=== PATIENT | male | born 1975 | race African-American/Black ===

== ENCOUNTER 2021-02-20 12:38 | Emergency (ER) | payer OTHER, SELFPAY ==
--- NOTE | ~2021-02-20 | XR_ITS ---
EXAMINATION: XR KNEE, RIGHT CLINICAL INFORMATION: Right knee pain and swelling COMPARISON: None TECHNIQUE: Four views of the right knee. FINDINGS: No significant joint space narrowing. Small marginal osteophytes of all 3 compartments. There is a moderately sized joint effusion. No fracture. XR/XR knee RT 4V IMPRESSION: Mild tricompartmental osteoarthritis with a joint effusion. No acute osseous abnormality.
[2021-02-20 12:49] VITALS: BP 111/66; PULSE 90; RESP 16; TEMP 35.9; O2SAT 96; BMI 34.6
[2021-02-20] MEDS: Lidocaine HCl 2 % MPF 5 ML VIAL INFILTRATI (14:26)
--- NOTE | 2021-02-20 14:26 | PC.NURSE ---
preperation to drain knee.
--- NOTE | 2021-02-20 14:51 | ED.EXTPRO ---
HPI - Extremity Problem General Chief complaint: Extremity Problem Stated complaint: R KNEE PAIN Time Seen by Provider: 02/20/21 12:59 Source: patient Mode of arrival: ambulatory Limitations: no limitations History of Present Illness HPI Narrative: Right knee pain and swollen since Tuesday. Patient denies any trauma to the knee. Patient states no fever chills. Patient states knee feels warm. Related Data Previous Rx's Medication Instructions Recorded naproxen 500 mg PO BID PRN #20 tab 02/20/21 prednisone 40 mg PO DAILY #10 tab 02/20/21 Allergies Allergy/AdvReac Type Severity Reaction Status Date / Time Unable to Assess Allergy Verified 02/20/21 14:14 Review of Systems Review of Systems: Yes all other systems are reviewed and are negative Constitutional: Constitutional: Reports as per HPI and Reports no additional constitutional complaints Eyes: Eyes: Reports as per HPI and Reports no additional eye complaints ENT: Reports system reviewed and no additional complaints, except as documented and Reports as per HPI Cardiovascular: Cardiovascular: Reports as per HPI and Reports no additional cardiovascular complaints Respiratory: Respiratory: Reports as per HPI and Reports no additional respiratory complaints Gastrointestinal: Gastrointestinal: Reports as per HPI and Reports no additional gastrointestinal complaints Genitourinary: Genitourinary: Reports no additional male genitourinary complaints and Reports as per HPI Musculoskeletal: Musculoskeletal: Reports no additional musculoskeletal complaints, Reports as per HPI, Reports arthralgias and Reports joint swelling (Right knee) Neurologic: Reports system reviewed and no additional complaints, except as documented and Reports as per HPI Psychiatric: Psychiatric: Reports no additional psychiatric complaints and Reports as per HPI [facility] Past Medical History Medical History (Updated 02/20/21 @ 14:53 by PEDRO Loyola) Anxiety Depression Social History Social History Advance Directives: No Advance Directives Information Provided: Yes Physical Exam Vital Signs: Vital Signs: Last Vital Signs Temp 96.6 F L 02/20/21 12:49 Pulse 90 02/20/21 12:49 Resp 16 02/20/21 12:49 BP 111/66 02/20/21 12:49 Pulse Ox 96 02/20/21 12:49 Body Mass Index 34.6 Const: General: cooperative, healthy appearing, comfortable, no acute distress, well developed, alert, awake and Physically active Orientation/consciousness: patient oriented x3 HENMT: Head: Yes normal to inspection, Yes No palpable skull fracture present, Yes normocephalic and Yes atraumatic Eyes: General: appearance normal, both eyes and all related structures Neck: Neck: Yes normal visual inspection, Yes full ROM, Yes no lymphadenopathy, Yes no meningeal signs, Yes trachea midline, Yes supple and No tender Chest: Chest palpation & inspection: normal inspection of the chest and normal palpation of entire chest wall Resp: Effort & Inspection: normal respiratory effort and able to speak in complete sentences Auscultation: clear to auscultation bilaterally Cardio: Jugular venous distension: no JVD Heart sounds: S1 normal heart sound present and S2 normal heart sound present GI: Inspection: Yes normal to inspection and No abdominal wall ecchymosis Palpation (GI): Soft to palpation, not firm, nontender, no guarding and not rigid : General: No CVA tenderness and Yes no CVA tenderness Back/Spine/Pelvis: Back: no CVA tenderness, No CVA tenderness and No back tenderness Skin: General skin exam: no rashes or lesions noted and elasticity normal Neuro: General: patient oriented x3, gait normal, no meningeal signs and CN's II-XI intact bilaterally Cranial nerves: Yes CN's II-XII intact bilaterally Extrem: Other: Right knee: Positive for knee swelling and warmth. Lower extremity negative for calf swelling/pain/redness. Psych: Appearance: grossly normal, well kempt and not disheveled Course Course Course Narrative: Patient was sent for right knee x-ray. Reevaluation(s) Reevaluation #1: Right knee x-ray shows arthritis and joint effusion. Due to knee being warmth and discussed with patient necessity for arthrocentesis. And patient agree with the plan. Patient signed consent for or throw centesis of right knee. Reevaluation #2: Knee was clean with Betadine iodine. 4 mL of 2% lidocaine was given for anesthesia. 18 gauge needle was then introduced to collect synovial fluid abd upon entry patient smacked my hand away and I had to remove the needle. Patient refused procedure. Patient was informed necessisity of the arthrocentesis to rule out septic knee or gout. Patient informed sepsis knee joint can be fatal, but patient still refused. Patient preferred to follow-up with orthopedic. Patient agreed with the sign out against medical advice even knowing possibility of , sepsis, decreased quality of life, and disability. MDM - Extremity (Nontraumatic) MDM Narrative Medical decision making narrative: Right knee pain swollen. AMA Discharge Plan Discharge Clinical Impression: Acute knee pain, Acute joint effusion Patient Disposition: Left Against Medical Advice Instructions: Swollen Knee Joint (ED) Additional Instructions: Stephens cierre de sesi?n contra el consejo m?dico. Regrese al servicio de urgencias de inmediato si tiene fiebre, escalofr?os, aumento de la hinchaz?n, calor, enrojecimiento, incapacidad para doblar la rodilla o cualquier otro s?ntoma preocupante. Prescriptions: New prednisone 20 mg tablet 40 mg PO DAILY Qty: 10 RF: 0 naproxen 500 mg tablet 500 mg PO BID PRN (Reason: pain) Qty: 20 RF: 0 Referrals: Rangel Quigley MD [Physician] - 2 days (Right knee swollen. Refused arthrocentesis) Stand Alone Forms: Against Medical Advice Print Language: Sudanese
--- NOTE | 2021-02-20 14:53 | PC.NURSE ---
PATIENT SCREAMING AT THE BEDSIDE HE SAYS HE IS IN PAIN BUT IS REFUSING FOR PA TO PERFORM KNEE ASPIRATION. HE IS REFUSING BLOOD WORK AT THIS TIME WELL. RN AND PA AWARE. PATIENT STATES HE WANTS TO LEAVE AMA BECAUSE IT HURTS TO MUCH
== END 2021-02-20 15:56 | disposition left against medical advice (07) ==
PROVIDERS: Emergency Provider Emergency Medicine Emergency Medical Services
DX: M25.561 Pain in right knee (principal); M25.461 Effusion, right knee; M17.11 Unilateral primary osteoarthritis, right knee
CPT/HCPCS: 73564; 96374; 99283; 99284; 99285

== ENCOUNTER 2021-02-25 07:46 | Outpatient (REF) | payer OTHER, SELFPAY ==
--- NOTE | ~2021-02-25 | XR_ITS ---
EXAMINATION: XR KNEE, BILATERAL STANDING XR KNEE, RIGHT CLINICAL INFORMATION: Knee pain. COMPARISON: Right knee radiographs 02/20/2021 TECHNIQUE: Single standing view both knees with 2 additional views right knee . FINDINGS: The standing radiograph of the knees definitely accentuates the joint space narrowing that is present compared with the presumed supine radiographs from 09/22/2020. In both knees, there is narrowing of both the medial and lateral compartments, medially greater than laterally. Some mild osteophytes are present bilaterally. The lateral radiograph of the right knee demonstrates some mild degenerative changes at the patellofemoral joint along with a small right knee joint effusion. XR/XR knee RT 2V IMPRESSION: Tricompartmental degenerative changes with [id number] loss of joint space as evident on the standing radiograph as opposed to the supine radiograph performed 5 days ago.
--- NOTE | ~2021-02-25 | XR_ITS ---
EXAMINATION: XR KNEE, BILATERAL STANDING XR KNEE, RIGHT CLINICAL INFORMATION: Knee pain. COMPARISON: Right knee radiographs 02/20/2021 TECHNIQUE: Single standing view both knees with 2 additional views right knee . FINDINGS: The standing radiograph of the knees definitely accentuates the joint space narrowing that is present compared with the presumed supine radiographs from 09/22/2020. In both knees, there is narrowing of both the medial and lateral compartments, medially greater than laterally. Some mild osteophytes are present bilaterally. The lateral radiograph of the right knee demonstrates some mild degenerative changes at the patellofemoral joint along with a small right knee joint effusion. XR/XR knee standing BI IMPRESSION: Tricompartmental degenerative changes with [id number] loss of joint space as evident on the standing radiograph as opposed to the supine radiograph performed 5 days ago.
== END 2021-02-25 07:47 | disposition home or self-care (01) ==
LOC: HO.HOSX 07:46
PROVIDERS: Visit Provider Physician Assistant
DX: M17.11 Unilateral primary osteoarthritis, right knee (principal); M25.461 Effusion, right knee
CPT/HCPCS: 73560; 73565; 99202

== ENCOUNTER → 2021-04-24 10:25 | Outpatient (BNVA) | payer OTHER, SELFPAY | PROVIDERS: Visit Provider Physician Assistant | DX: M17.11 Unilateral primary osteoarthritis, right knee (principal) | CPT/HCPCS: 99212 ==

== ENCOUNTER 2021-05-07 11:00 | Outpatient (RCR) | payer OTHER, SELFPAY ==
--- NOTE | 2021-04-01 11:43 | MHC.PT.EP ---
[facility] [place] Office [place] Office [place] Office [address] [phone] F: [phone] F: [phone] F: [phone] F: [phone] Physical Therapy Plan of Care Date of Evaluation: Date of Surgery: N/A Diagnosis: unilateral primary OA right knee Assessment: 46 y/o M referred for primary OA R knee with s/sx consistent with R HS strain and ?lateral meniscal involvement. Pt complains of pain and difficulty with walking, prolonged standing, navigating stairs, squatting and bending down, preparing meals, getting into/out of shower, and sleeping. Examination shows increased R knee joint effusion, TTP R knee lateral joint line and popliteal fossa ?allodynia, limited R knee ROM, limited R hip/knee strength, poor transitional mobility, and impaired gait mechanics with increased forward trunk flexion, decreased R stance time, and lack of R knee terminal extension. Pt presents guarded and is unable to tolerate palpation or exercises. Assess HS length and special tests for R knee meniscal involvement when pt tolerance increases. Recommend PT 2/week for 5 weeks to address impairments, implement HEP, and optimize functional mobility. Frequency and Duration: The patient will be seen 2x/week for 5 weeks Short Term Goals: 2 weeks: 1. I with HEP 2. Pt will increase R knee AROM by >10 degrees to promote functional mobility 2. Pt will demonstrate proper squat form with <3/10 pain Custodial Goals: 5 weeks: 1. I with HEP and self-management of sx 2. Pt will be able to ambulate >30 mins with <3/10 pain 3. Pt will be able to navigate stairs using step over step pattern with <3/10 pain Treatment Plan: Modalities to reduce pain, spasms and effusion. Manual therapy to restore motion and function. Therapeutic exercise to improve strength and flexibility. Neuromuscular re-education for posture and balance. Therapeutic activities to return to functional activities of daily living. Electronically signed by: Heidy Vitale PT Please sign and return to therapist. Thank you for your referral.
--- NOTE | 2021-06-17 10:18 | MHC.PT.DC ---
[facility] [place] [facility] [place] Office [place] Office [address] [phone] F: [phone] F: [phone] F: [phone] F: [phone] Physical Therapy Discharge Report Diagnosis: unilateral primary OA right knee Date of Surgery: N/A Date of Evaluation: 04/01/21 Date of Discharge: 06/17/21 Treatments to Date: 8 Cancellations to Date: 2 No Shows to Date: 2 Discharge Status: Independent with HEP Discharge Summary: Pt did not f/u with final 2 visits, but was I with HEP at time of last attended visit. Electronically signed by: Heidy Vitale PT Please sign and return to therapist. Thank you for your referral.
== END 2021-06-17 10:18 | disposition home or self-care (01) ==
LOC: HO.PT 11:00
PROVIDERS: Visit Provider Physician Assistant
DX: M17.11 Unilateral primary osteoarthritis, right knee (principal); M25.461 Effusion, right knee
CPT/HCPCS: 97110; 97161; 97530

== ENCOUNTER 2021-12-09 18:33 | Inpatient (IN) | payer OTHER, SELFPAY ==
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
[2021-12-09 18:47] VITALS: BP 144/88; PULSE 104; O2SAT 94
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
--- NOTE | 2021-12-09 18:55 | MHC.CARE ---
Pt is on a Section 12 and will need a crisis evaluation when medically cleared.
[2021-12-09 19:02] VITALS: BP 145/78; PULSE 101; RESP 18; TEMP 36.9; O2SAT 95; BMI 31.8
[2021-12-09 20:41] LABS: MANUAL DIFF FLAG NO
[2021-12-09 20:42] LABS: Basophils Absolute Auto 0.1 X10*3/uL (0.0-0.2); Basophils Percent Auto 0.6 % (0-2); Eosinophils Absolute Auto 0.2 X10*3/uL (0.0-0.4); Eosinophils Percent Auto 1.7 % (0-4); Hematocrit 37.8 % (42.0-52.0); Hemoglobin 13.4 g/dl (14.0-18.0); Imm Gran Abs Auto 0.02 X10*3/uL (0.00-0.03); Imm Gran Pct Auto 0.2 % (0.0-0.4); Lymphocytes Absolute Auto 2.2 X10*3/uL (1.2-4.9); Lymphocytes Percent Auto 21.1 % (20-40); Mean Corpuscular HGB Conc 35.4 g/dl (31.0-36.0); Mean Corpuscular Hemoglobin 30.1 pg (27.0-33.0); Mean Corpuscular Volume 84.9 fL (80.0-98.0); Mean Platelet Volume 11.2 fL (9.4-12.4); Monocytes Absolute Auto 0.9 X10*3/uL (0.1-1.2); Monocytes Percent Auto 8.4 % (2-11); Neutrophils Absolute Auto 7.1 x10*3/uL (2.0-8.3); Platelet Count 238 X10*3/uL (160-400); Red Blood Count 4.45 X10*6/uL (4.60-5.80); Red Cell Distribution Width 14.5 % (11.0-16.0); White Blood Count 10.5 X10*3/uL (4.8-10.8)
[2021-12-09 20:55] LABS: Ethanol < 10 mg/dL
[2021-12-09 20:57] LABS: COVID-19 Test Negative (Negative)
[2021-12-09 20:58] LABS: Alanine Aminotransferase 18 U/L (0-40); Albumin Level 4.4 g/dL (3.5-5.0); Alkaline Phosphatase 110 U/L (39-117); Anion Gap 12 (12-20); Aspartate Amino Transferase 16 U/L (5-37); Bilirubin Direct 0.3 mg/dL (0.0-0.5); Bilirubin Total 0.9 mg/dL (0.0-1.0); Blood Urea Nitrogen 12 mg/dL (9-16); Calcium 9.2 mg/dL (8.4-10.2); Carbon Dioxide 25 mmol/L (22-29); Chloride 103 mmol/L (96-108); Creatinine Clr Calc Pharmacy 128.2; Estimated Glomerular Filt Rate > 60; Glucose Random 95 mg/dL (60-115); Magnesium 2.1 mg/dL (1.6-2.6); Potassium 3.4 mmol/L (3.3-5.1); Sodium 137 mmol/L (135-145); Total Protein 7.9 g/dL (6.5-8.0)
[2021-12-09 21:18] LABS: TSH reflex Free T4 0.84 uIU/mL (0.32-4.0)
[2021-12-09 21:40] LABS: Amphetamine Screen Urine Not Detected (Not Detect); Barbiturates, Urine Not Detected (Not Detect); Benzodiazepines Screen Urine Not Detected (Not Detect); Cannabinoid Screen Urine POSITIVE (Not Detect); Cocaine Screen Urine POSITIVE (Not Detect); Fentanyl, urine Not Detected (Not Detect); Opiate Screen Urine Not Detected (Not Detect); Phencyclidine Screen Urine Not Detected (Not Detect)
[2021-12-10 03:04] VITALS: BP 138/101; PULSE 65; RESP 20; TEMP 37.1; O2SAT 96
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
--- NOTE | 2021-12-10 07:05 | PC.NURSE ---
Care assumed at this time, report from Connor ZELAYA. Pt sleeping at this time.
[2021-12-10 08:12] VITALS: BP 122/78; PULSE 68; RESP 12; TEMP 37.1; O2SAT 99
--- NOTE | 2021-12-10 11:31 | PC.NURSE ---
Plan per CARE team is for pt to become an inpatient bedsearch.
[2021-12-10 16:55] VITALS: BP 145/88; PULSE 76; RESP 18; TEMP 37.5; O2SAT 96
--- NOTE | 2021-12-11 | ECG_ITS ---
Test Reason : medical clearance Blood Pressure : / mmHG Vent. Rate : 079 BPM Atrial Rate : 079 BPM P-R Int : 144 ms QRS Dur : 070 ms QT Int : 382 ms P-R-T Axes : 037 066 033 degrees QTc Int : 438 ms Normal sinus rhythm Normal ECG No previous ECGs available Referred By: Tammy Cummings Electronically Signed By:Antonio Morales
[2021-12-11 05:54] VITALS: BP 143/83; PULSE 61; RESP 19; TEMP 37.2; O2SAT 100
--- NOTE | 2021-12-11 06:28 | PC.NURSE ---
Patient slept through the night, no distress observed/reported, behavior pleasant and non concerning, patient is currently not on any medication, disposition per care team is section 12 inpatient bed search, will continue to monitor.
[2021-12-11 09:04] VITALS: RESP 18
[2021-12-11 15:07] LABS: COVID-19 Test Negative (Negative); IDNOW Serial# 16C4AD1C
--- NOTE | 2021-12-11 17:40 | PC.NURSE ---
nurse to nurse given to m3 rn
[2021-12-11 18:52] VITALS: BP 153/90; PULSE 93; RESP 17; TEMP 36.7; O2SAT 97
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
[2021-12-11] MEDS: QUEtiapine Fumarate 100 MG TABLET PO (23:07)
--- NOTE | 2021-12-12 07:13 | PC.NURSE ---
labs-refused labs
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
[2021-12-12 19:51] VITALS: BP 126/80; PULSE 90; RESP 20; TEMP 37.1; O2SAT 96
[2021-12-12] MEDS: QUEtiapine Fumarate 100 MG TABLET PO (23:19)
[2021-12-13 09:03] VITALS: BP 145/87; PULSE 98; RESP 16; TEMP 36.2; O2SAT 99
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
[2021-12-13 20:27] VITALS: BP 137/82; PULSE 112; RESP 16; TEMP 36.7; O2SAT 97
[2021-12-13] MEDS: QUEtiapine Fumarate 100 MG TABLET PO (23:30)
[2021-12-14 09:31] VITALS: BP 133/98; PULSE 84; RESP 18; TEMP 37.2; O2SAT 99
[2021-12-14] MEDS: Acetaminophen 325 MG TABLET 650 MG PO (09:56)
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
[2021-12-14 21:24] VITALS: BP 160/89; PULSE 99; RESP 16; TEMP 36.7; O2SAT 97
[2021-12-14] MEDS: QUEtiapine Fumarate 100 MG TABLET PO (22:48)
[2021-12-15 10:30] VITALS: BP 148/100; PULSE 90; RESP 20; TEMP 36.1; O2SAT 99
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
[2021-12-15 15:45] VITALS: BP 133/91; PULSE 109; RESP 18; O2SAT 97
[2021-12-15] MEDS: amLODIPine Besylate 5 MG TABLET PO (16:00)
[2021-12-15 20:00] VITALS: BP 134/80; PULSE 110; RESP 18; TEMP 36.6; O2SAT 98
[2021-12-15] MEDS: Acetaminophen 325 MG TABLET 650 MG PO (22:46)
[2021-12-15] MEDS: QUEtiapine Fumarate 100 MG TABLET PO (22:47)
[2021-12-16 09:32] VITALS: BP 128/86; PULSE 92; RESP 18; TEMP 36.4; O2SAT 98
[2021-12-16] MEDS: amLODIPine Besylate 5 MG TABLET PO (09:33)
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
[2021-12-16 20:05] VITALS: BP 119/83; PULSE 106; RESP 18; TEMP 36.2; O2SAT 97
[2021-12-16] MEDS: QUEtiapine Fumarate 100 MG TABLET PO (21:40)
[2021-12-17 07:00] VITALS: BMI 33.4
[2021-12-17 09:00] VITALS: BP 100/62; PULSE 116; RESP 16; TEMP 36.6; O2SAT 97
[2021-12-17] MEDS: Acetaminophen 325 MG TABLET 650 MG PO (10:33)
[2021-12-17] MEDS: amLODIPine Besylate 5 MG TABLET PO (10:34)
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
[2021-12-17 19:00] VITALS: BP 144/83; PULSE 107; RESP 20; TEMP 36.4; O2SAT 96
[2021-12-17] MEDS: QUEtiapine Fumarate 100 MG TABLET PO (22:07)
--- NOTE | 2021-12-18 08:04 | PC.NURSE ---
Patient is alert, fully oriented, pleasant and cooperative with discharge plan. He denies ideation, plan or intent to harm himself or others. He verbalizes understanding of discharge walker including medications and need for follow up appointments. He denies physical complaint.
[2021-12-18] MEDS: amLODIPine Besylate 5 MG TABLET PO (08:30)
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
== END 2021-12-18 10:53 | disposition home or self-care (01) | DRG 755 ==
LOC: HO.ED 20:15 → HO.PADLT16 12-11 17:55
PROVIDERS: Admitting Provider Psychiatry & Neurology Psychiatry; Emergency Provider Emergency Medicine; Visit Provider Psychiatry & Neurology Psychiatry
DX: F43.10 Post-traumatic stress disorder, unspecified (principal); R45.850 Homicidal ideations; Z20.822 Contact with and (suspected) exposure to COVID-19; Z79.899 Other long term (current) drug therapy
CPT/HCPCS: 36415; 80048; 80076; 80307; 82077; 83735; 84443; 85025; 87635; 93005; 99285